=== PATIENT | male | born 1985 | race Caucasian/White ===

== ENCOUNTER 2016-07-25 17:16 | Emergency (ER) | payer OTHER ==
[2016-07-25 17:51] VITALS: BP 161/89; PULSE 66; RESP 18; TEMP 97.5; O2SAT 96
--- NOTE | 2016-07-25 17:53 | UCPHY ---
H & P Patient Type: New Time Seen by Provider: 07/25/16 17:23 HPI/ROS: CHIEF COMPLAINT: lightheaded x1 week HISTORY OF PRESENT ILLNESS: 31-year-old male generally healthy complaining of 1 week of subjective sensation of lightheaded. He has difficulty completely describing this, describes episodes where he will have a non thunderclap onset of lightheadedness which is not a presyncopal or syncopal sensation, lasts anywhere from a few seconds to few minutes. Currently asymptomatic. He does note that he has had poor sleep hygiene recently. He never has amnesia, never has pain associated with these episodes, no incontinence, no post episode confusion. He never has difficulty ambulating or speaking, no facial complaints such as paresthesia, pain. No visual complaints. No gait instability. No headache. No chest pain. No palpitations. No dyspnea. no chest x-ray. No head injury. No major minor head and/or neck injury/trauma/ manipulation PRIMARY CARE PROVIDER: no primary care provider REVIEW OF SYSTEMS: A ten point review of systems was performed and is negative with the exception of the items mentioned in the HPI PAST MEDICAL & SURGICAL HISTORY: No pertinent medical or surgical history SOCIAL HISTORY: Nonsmoker. . FAMILY HISTORY: No family history of CVA, coagulopathic disorder, vasculopathy , cardiac disease PHYSICAL EXAM (Prior to examination, patient consented to physical exam, hands were washed and my usual and customary physical exam procedures followed) 1) GENERAL: Well-developed, well-nourished, alert and oriented. Appears to be in no acute distress. 2) HEAD: Normocephalic, atraumatic 3) HEENT: Pupils equal, round, reactive to light bilaterally. Sclera anicteric. Nasopharynx, oropharynx, clear, no lesions. Ears bilaterally with mild clear effusion with no evidence of infection. 4) NECK: Full range of motion, no meningeal signs. 5) LUNGS: Clear auscultation bilaterally, no wheezes, no rhonchi, no retractions. 6) HEART: Regular rate and rhythm, no murmur, no heave, no gallop. 7) ABDOMEN: No guarding, no rebound, no focal tenderness, negative McBurney', 8) MUSCULOSKELETAL: Moving all extremities, no focal areas of tenderness, no obvious trauma. No peripheral edema or discoloration. 9) BACK: No CVA tenderness, no midline vertebral tenderness, no fluctuance, no step-off, no obvious trauma, no visual or palpable abnormality. 10) SKIN: No rash, no petechiae. 11) Psychiatric: Patient is oriented X 3, there is no agitation. Comp, appropriate 12) NEURO: Awake, alert, and oriented to person, place and time. Answers questions appropriately. There were no obvious focal neurologic abnormalities. No cerebellar dysfunction. Normal steady gait. Upper and lower extremities bilaterally with strength 5 / 5, reflexes 2+. DIFFERENTIAL DIAGNOSIS: in no particular include but limited to cardiac arrhythmia, CVA, anemia - Family History Significant Family History: No pertinent family hx Constitutional: Initial Vital Signs Temperature (C) 36.4 C 07/25/16 17:39 Heart Rate 66 07/25/16 17:39 Respiratory Rate 18 07/25/16 17:39 Blood Pressure 161/89 H 07/25/16 17:39 O2 Sat (%) 96 07/25/16 17:39 O2 Delivery Mode Room Air Allergies/Adverse Reactions: No Known Allergies Allergy (Unverified 07/25/16 17:39) Home Medications: Medication Instructions Recorded NO HOME MEDS 05/02/10 Medical Decision Making ED Course/Re-evaluation: This patient was re-evaluated with serial examinations most recently at 6:20 p.m. which point he continues to appear well, has a nonfocal neurologic examination, answering questions appropriately. I discussed case Dr. Christopher Osorio in the urgent care. I do not think that imaging of the brain currently indicated as he has a nonfocal exam I do not think the benefits of imaging outweigh the risks in this otherwise healthy 31-year-old male. Doubt CVA. Doubt cardiac arrhythmia or cardiac pathology. He did discuss his recent poor sleep hygiene and we discussed possibility of this being a contributing variable. At this time I do not think that further diagnostic studies or imaging or hospitalization is indicated. I have recommended close follow-up with a primary care provider and establishing a primary care provider. I have given him this referral information. We had a lengthy discussion by the importance of immediate follow-up in the emergency department should she develop new or worsening symptoms, should she develop any focal neurologic deficits, headache, visual disturbance, gait instability or any other symptoms that concern him. He was provided my usual and customary discharge precautions instructions. He verbalized understanding and acceptance of this and feels comfortable being discharged. - Data Points Laboratory Results: Laboratory Results 07/25/16 17:55 07/25/16 17:55 07/25/16 17:55 WBC 6.77 10^3/uL (3.80-9.50) RBC 5.70 10^6/uL (4.40-6.38) Hgb 16.5 g/dL (13.7-17.5) Hct 46.4 % (40.0-51.0) MCV 81.4 L fL (81.5-99.8) MCH 28.9 pg (27.9-34.1) MCHC 35.6 g/dL (32.4-36.7) RDW 12.2 % (11.5-15.2) Plt Count 254 10^3/uL (150-400) MPV 9.9 fL (8.7-11.7) Neut % (Auto) 44.5 % (39.3-74.2) Lymph % (Auto) 45.1 H % (15.0-45.0) [place] % (Auto) 6.2 % (4.5-13.0) Eos % (Auto) 3.1 % (0.6-7.6) Baso % (Auto) 1.0 % (0.3-1.7) Nucleat RBC Rel Count 0.0 % (0.0-0.2) Absolute Neuts (auto) 3.01 10^3/uL (1.70-6.50) Absolute Lymphs (auto) 3.05 H 10^3/uL (1.00-3.00) Absolute Monos (auto) 0.42 10^3/uL (0.30-0.80) Absolute Eos (auto) 0.21 10^3/uL (0.03-0.40) Absolute Basos (auto) 0.07 10^3/uL (0.02-0.10) Absolute Nucleated RBC 0.00 10^3/uL (0-0.01) Immature Gran % 0.1 % (0.0-1.1) Immature Gran # 0.01 10^3/uL (0.00-0.10) Sodium 139 mEq/L (134-144) Potassium 4.0 mEq/L (3.5-5.2) Chloride 107 mEq/L (97-110) Carbon Dioxide 23 mEq/l (22-31) Anion Gap 9 mEq/L (8-16) BUN 18 mg/dL (7-23) Creatinine 0.9 mg/dL (0.7-1.3) Estimated GFR > 60 Glucose 89 mg/dL (70-100) Calcium 9.3 mg/dL (8.5-10.4) Departure - Departure Disposition: Home, Routine, Self-Care Clinical Impression: Lightheadedness Condition: Good Instructions: Lightheadedness (ED) Additional Instructions: If you developed chest pain, shortness of breath, headache, visual problems, problems walking, if you feel like you will pass out, call 911 Referrals: Joanne Ramírez MD [Medical Doctor] - 1-2 days without fail - PQRS PQRS Measurement: Not applicable
--- NOTE | 2016-07-25 17:54 | CPEKG ---
Heart Rate: 62 RR Interval: 968 P-R Interval: 136 QRSD Interval: 98 QT Interval: 392 QTC Interval: 398 P Turner: 87 QRS Turner: 103 T Wave Turner: 32 EKG Severity - OTHERWISE NORMAL ECG - EKG Impression: SINUS RHYTHM EKG Impression: RIGHT AXIS DEVIATION Electronically Signed By: Christopher Osorio 25-Jul-2016 19:16:11
[2016-07-25 18:01] LABS: % IMMATURE GRANULYOCYTES 0.1 % (0.0-1.1); ABSOLUTE IMMATURE GRANULOCYTES 0.01 10^3/uL (0.00-0.10); ADD DIFF? NO; ADD MORPH? NO; ADD SCAN? NO; ATYPICAL LYMPHOCYTE FLAG 20 (0-99); FRAGMENT RBC FLAG 0 (0-99); HEMATOCRIT 46.4 % (40.0-51.0); HEMOGLOBIN 16.5 g/dL (13.7-17.5); LEFT SHIFT FLG 0 (0-99); LIPEMIA HEMOLYSIS FLAG 90 (0-99); MEAN CELL HEMOGLOBIN 28.9 pg (27.9-34.1); MEAN CELL HEMOGLOBIN CONCENTR. 35.6 g/dL (32.4-36.7); MEAN CELL VOLUME 81.4 fL (81.5-99.8); MEAN PLATELET VOLUME 9.9 fL (8.7-11.7); PLATELET CLUMPS FLAG 0 (0-99); PLATELET COUNT 254 10^3/uL (150-400); RED CELL DISTRIBUTION WIDTH 12.2 % (11.5-15.2)
[2016-07-25 18:15] LABS: ANION GAP 9 mEq/L (8-16); CALCIUM 9.3 mg/dL (8.5-10.4); CARBON DIOXIDE 23 mEq/l (22-31); CHLORIDE 107 mEq/L (97-110); CREATININE 0.9 mg/dL (0.7-1.3); GLOMERULAR FILTRATION RATE > 60; GLUCOSE 89 mg/dL (70-100); SODIUM 139 mEq/L (134-144)
== END 2016-07-25 18:33 | disposition home or self-care (01) ==
LOC: CED 17:16
DX: R42 Dizziness and giddiness (principal)
CPT/HCPCS: 80048-PO; 85025-PO; G0463-PO

== ENCOUNTER → 2018-11-29 | Outpatient (CLI) | payer OTHER | LOC: CIMAGING 12:40 | PROVIDERS: ATTEND Family Medicine | DX: R10.13 Epigastric pain (principal) | CPT/HCPCS: 76700-PO ==